=== PATIENT | female | born 1930 | race Caucasian/White ===

== ENCOUNTER 2021-10-04 00:05 | Inpatient (IN) | payer MEDICARE, OTHER ==
[2021-10-04] MEDS ORDERED: Sodium Chloride 0.9% 10 ML Syringe FLUSH PRN (02:41)
[2021-10-04] MEDS: Acetaminophen 325 MG Tab PO PRN ×4 (03:16→20:06)
[2021-10-04] MEDS ORDERED: Acetaminophen 325 MG Tab PO PRN (06:29)
[2021-10-04] MEDS ORDERED: Polyethylene Glycol 3350 Powder 17 GM Packet PO PRN (06:29)
[2021-10-04] MEDS: Potassium Chloride 10 MEQ Tab.ER PO SCH (08:58)
[2021-10-04] MEDS: Hydrochlorothiazide/Triamterene 25-37.5 MG Cap PO SCH (09:07)
[2021-10-04] MEDS: HYDROmorphone 0.5 MG/0.5 ML Syringe IVPUSH PRN ×3 (12:22→21:28)
[2021-10-04] MEDS: Enoxaparin 40 MG/0.4 ML Syringe SUBCUT SCH (12:53)
[2021-10-04] MEDS: Ondansetron 4 MG/2 ML SDV IVPUSH PRN ×2 (13:52→18:40)
[2021-10-04] MEDS: Potassium Chloride 20 MEQ Tab.ER PO SCH ×2 (18:25→21:33)
[2021-10-04] MEDS: Isosorbide Dinitrate 20 MG Tab PO SCH (21:27)
[2021-10-04] MEDS: Verapamil 120 MG Cap.ER PO SCH (21:28)
[2021-10-05] MEDS: HYDROmorphone 0.5 MG/0.5 ML Syringe IVPUSH PRN ×5 (01:56→19:28)
[2021-10-05] MEDS: Potassium Chloride 20 MEQ Tab.ER PO SCH ×2 (01:57→06:26)
[2021-10-05] MEDS: Enoxaparin 40 MG/0.4 ML Syringe SUBCUT SCH (06:24)
[2021-10-05] MEDS: Levothyroxine 50 MCG Tab PO SCH (06:26)
[2021-10-05] MEDS: Ondansetron 4 MG/2 ML SDV IVPUSH PRN (06:31)
[2021-10-05] MEDS: Potassium Chloride 10 MEQ Tab.ER PO SCH (09:05)
[2021-10-05] MEDS: Acetaminophen 325 MG Tab PO PRN ×3 (09:05→21:25)
[2021-10-05] MEDS: Hydrochlorothiazide/Triamterene 25-37.5 MG Cap PO SCH (09:05)
[2021-10-05] MEDS: Isosorbide Dinitrate 20 MG Tab PO SCH (21:21)
[2021-10-05] MEDS: Verapamil 120 MG Cap.ER PO SCH (21:23)
[2021-10-06] MEDS: HYDROmorphone 0.5 MG/0.5 ML Syringe IVPUSH PRN ×4 (00:08→18:31)
[2021-10-06] MEDS: Levothyroxine 50 MCG Tab PO SCH (05:24)
[2021-10-06] MEDS: Potassium Chloride 10 MEQ Tab.ER PO SCH (08:20)
[2021-10-06] MEDS: Enoxaparin 40 MG/0.4 ML Syringe SUBCUT SCH (08:52)
[2021-10-06] MEDS ORDERED: Bupivacaine 0.25% 10 ML SDV ONE (09:00)
[2021-10-06] MEDS ORDERED: Acetaminophen/HYDROcodone 325-5 MG Tab PO PRN (09:21)
[2021-10-06] MEDS: Acetaminophen 325 MG Tab PO PRN (09:49)
[2021-10-06] MEDS ORDERED: Acetaminophen/oxyCODONE 325-5 MG Tab PO ONE (10:11)
[2021-10-06] MEDS ORDERED: Docusate Sodium 100 MG Cap PO ONE (10:30)
[2021-10-06] MEDS ORDERED: Cyclobenzaprine 10 MG Tab PO ONE (10:30)
[2021-10-06] MEDS: Docusate Sodium 100 MG Cap PO SCH ×3 (10:50→21:05)
[2021-10-06] MEDS ORDERED: Bupivacaine 0.75%/D5W 2 ML Amp ONE (11:25)
[2021-10-06] MEDS ORDERED: Ketamine 500 mg/10 ML MDV ONE (11:26)
[2021-10-06] MEDS ORDERED: Midazolam 1 MG/ML 2 ML SDV ONE (11:26)
[2021-10-06] MEDS ORDERED: fentaNYL 100 MCG/2 ML SDV ONE (11:26)
[2021-10-06] MEDS ORDERED: ceFAZolin 2 GM Vial ONE (11:30)
[2021-10-06] MEDS ORDERED: Propofol 200 MG/20 ML SDV ONE (11:30)
[2021-10-06] MEDS: Acetaminophen/oxyCODONE 325-5 MG Tab PO PRN ×2 (16:16→23:33)
[2021-10-06] MEDS: Cyclobenzaprine 10 MG Tab PO PRN (17:00)
[2021-10-06] MEDS: Isosorbide Dinitrate 20 MG Tab PO SCH (21:05)
[2021-10-06] MEDS: Verapamil 120 MG Cap.ER PO SCH (21:05)
[2021-10-07] MEDS: HYDROmorphone 0.5 MG/0.5 ML Syringe IVPUSH PRN (01:05)
[2021-10-07] MEDS: Levothyroxine 50 MCG Tab PO SCH (05:26)
[2021-10-07] MEDS: Acetaminophen/oxyCODONE 325-5 MG Tab PO PRN ×5 (05:26→23:00)
[2021-10-07] MEDS ORDERED: Sodium Chloride 0.9% 1,000 ML IV SCH (07:15)
[2021-10-07] MEDS: Aspirin 325 MG Tab.EC PO SCH ×2 (08:32→20:33)
[2021-10-07] MEDS: Docusate Sodium 100 MG Cap PO SCH (08:32)
[2021-10-07] MEDS: Sodium Chloride 0.9% 1,000 ML IV SCH ×2 (13:09→23:00)
[2021-10-07] MEDS ORDERED: Bisacodyl 10 MG Supp RECTAL ONE (14:15)
[2021-10-07] MEDS: Cyclobenzaprine 10 MG Tab PO PRN (18:29)
[2021-10-07] MEDS: Verapamil 120 MG Cap.ER PO SCH (20:31)
[2021-10-07] MEDS: Isosorbide Dinitrate 20 MG Tab PO SCH (20:33)
[2021-10-08] MEDS: Levothyroxine 50 MCG Tab PO SCH (05:30)
[2021-10-08] MEDS: Acetaminophen/oxyCODONE 325-5 MG Tab PO PRN ×4 (05:30→18:01)
[2021-10-08] MEDS: Polyethylene Glycol 3350 Powder 17 GM Packet PO SCH (09:45)
[2021-10-08] MEDS: Aspirin 325 MG Tab.EC PO SCH ×2 (09:47→20:49)
[2021-10-08] MEDS: Verapamil 120 MG Cap.ER PO SCH (20:49)
[2021-10-08] MEDS: Isosorbide Dinitrate 20 MG Tab PO SCH (20:50)
[2021-10-08] MEDS: Acetaminophen 325 MG Tab PO PRN (21:02)
[2021-10-09] MEDS: Acetaminophen/oxyCODONE 325-5 MG Tab PO PRN ×4 (02:26→21:24)
[2021-10-09] MEDS: Cyclobenzaprine 10 MG Tab PO PRN (05:05)
[2021-10-09] MEDS: Levothyroxine 50 MCG Tab PO SCH (05:06)
[2021-10-09] MEDS: Polyethylene Glycol 3350 Powder 17 GM Packet PO SCH (08:09)
[2021-10-09] MEDS: Aspirin 325 MG Tab.EC PO SCH ×2 (08:09→21:25)
[2021-10-09] MEDS: Non-Formulary Medication 1 Each PO SCH (19:00)
[2021-10-09] MEDS: [UNRECOGNIZED DRUG - OTHER] PO SCH (19:00)
[2021-10-09] MEDS: Verapamil 120 MG Cap.ER PO SCH (21:25)
[2021-10-09] MEDS: Isosorbide Dinitrate 20 MG Tab PO SCH (21:26)
[2021-10-10] MEDS: Acetaminophen/oxyCODONE 325-5 MG Tab PO PRN ×4 (01:26→20:17)
[2021-10-10] MEDS: Acetaminophen 325 MG Tab PO PRN (04:07)
[2021-10-10] MEDS: Cyclobenzaprine 10 MG Tab PO PRN (04:08)
[2021-10-10] MEDS: Levothyroxine 50 MCG Tab PO SCH (05:35)
[2021-10-10] MEDS: Aspirin 325 MG Tab.EC PO SCH ×2 (08:01→20:17)
[2021-10-10] MEDS: Polyethylene Glycol 3350 Powder 17 GM Packet PO SCH (08:02)
[2021-10-10] MEDS: Non-Formulary Medication 1 Each PO SCH (08:02)
[2021-10-10] MEDS ORDERED: [UNRECOGNIZED DRUG - OTHER] PO SCH (09:00)
[2021-10-10] MEDS: [UNRECOGNIZED DRUG - OTHER] PO SCH (18:56)
[2021-10-10] MEDS: Isosorbide Dinitrate 20 MG Tab PO SCH (20:16)
[2021-10-10] MEDS: Verapamil 120 MG Cap.ER PO SCH (20:17)
[2021-10-11] MEDS: Acetaminophen/oxyCODONE 325-5 MG Tab PO PRN ×2 (04:24→08:27)
[2021-10-11] MEDS: Levothyroxine 50 MCG Tab PO SCH (05:17)
[2021-10-11] MEDS: Non-Formulary Medication 1 Each PO SCH (08:00)
[2021-10-11] MEDS: Polyethylene Glycol 3350 Powder 17 GM Packet PO SCH (08:00)
[2021-10-11] MEDS: Aspirin 325 MG Tab.EC PO SCH (08:00)
== END 2021-10-11 09:40 | disposition swing bed (61) | DRG 481 ==
LOC: JD.MS 00:05
PROVIDERS: ADMIT Internal Medicine Cardiovascular Disease; ATTEND Internal Medicine
PROC: 0QS606Z Reposition Right Upper Femur with Intramedullary Internal Fixation Device, Open Approach (ICD-10-PCS; principal; 2021-10-06)
DX: S72.141A Displaced intertrochanteric fracture of right femur, initial encounter for closed fracture (principal); E87.1 Hypo-osmolality and hyponatremia; D64.9 Anemia, unspecified; I10 Essential (primary) hypertension; E03.9 Hypothyroidism, unspecified; Z96.651 Presence of right artificial knee joint; E78.5 Hyperlipidemia, unspecified; Z20.822 Contact with and (suspected) exposure to COVID-19; Z79.890 Hormone replacement therapy; Z79.82 Long term (current) use of aspirin; Z79.899 Other long term (current) drug therapy; Z79.1 Long term (current) use of non-steroidal anti-inflammatories (NSAID); Z86.16 Personal history of COVID-19; Z97.3 Presence of spectacles and contact lenses; Z98.42 Cataract extraction status, left eye; Z98.41 Cataract extraction status, right eye; Z98.890 Other specified postprocedural states; W01.0XXA Fall on same level from slipping, tripping and stumbling without subsequent striking against object, initial encounter; Y92.000 Kitchen of unspecified non-institutional (private) residence as the place of occurrence of the external cause
CPT/HCPCS: 01230; 36415; 51701; 51702; 51798; 71045; 71045-26; 73501-26-RT; 73501-RT; 76000; 76000-26; 80048; 80053; 80061; 83735; 84443; 85025; 85610; 85730; 86140; 86850; 86900; 86901; 87641; 93005; 93306; 94761; 97110-GP; 97116-GP; 97140-GP; 97161-GP; 97166-GO; 97530-GP; 97535-GO; 99100; 99222; 99239; A9270-GY; C1713; J0690; J1170; J1650; J2250; J2405; J2704; J3010; J3490; J7030; U0002